=== PATIENT | female | born 1950 | race Caucasian/White ===

== ENCOUNTER 2021-09-14 12:42 | Inpatient (IN) ==
--- NOTE | 2021-09-14 13:48 | Emergency Department Note ---
Impression & Plan TIA (transient ischemic attack), Carotid artery disease ED Provider Note NAME: ROXANA CARREON AGE: 71 SEX: F : 1950 ARRIVES VIA: Walk-In INFORMANT: Patient, ED PROVIDER(S): Avni Moore DO CHIEF COMPLAINT: Left hand weakness HPI: The patient is a 71-year-old female who presented to emergency department with left upper extremity weakness. She states that the symptoms began yesterday. She states that the symptoms have been intermittent. She states that she has had multiple episodes over the last 24 hours. She has not been seen by her provider for the symptoms. She states that she does have a history of a stroke in the past and this is why she came in the emergency department today she was concerned that the symptoms could be consistent with a stroke. She denies having any nausea or vomiting. She denies having any headache. She describes an episode where her left upper extremity will start to become numb and then she will have a clenching episode with the left upper extremity. She states she cannot hold anything with that hand whenever these episodes occur. She states she currently is not experiencing that episode and feels that overall her strength is symmetric. ROS: See above HPI for pertinent positives & negatives. A total of 10 systems reviewed and were otherwise negative. PAST MEDICAL HISTORY: See Below PAST SURGICAL HISTORY: See Below FAMILY HISTORY: See Below SOCIAL HISTORY: See Below HOME MEDICATIONS: See Below ALLERGIES: See Below VITALS: See Below PHYSICAL EXAMINATION: GENERAL: Patient is awake alert in no acute distress patient is resting comfortably and showing no signs of anxiety EYES: The conjunctivae are clear. The pupils are round and reactive. EARS, NOSE, MOUTH AND THROAT: The nose is without any evidence of any deformity. NECK: The neck is nontender and supple. RESPIRATORY: Normal respiratory effort is noted there is no evidence of wheezing rhonchi or rales CARDIOVASCULAR: Regular rate and rhythm noted there no murmurs rubs or gallops normal S1 normal S2. GASTROINTESTINAL: The abdomen is soft. Abdomen is nontender. MUSCULOSKELETAL/EXTREMITIES: There is no evidence of gross deformity full range of motion is noted in the hips and shoulders. SKIN: There is no obvious evidence of any rash. There are no petechiae, pallor or cyanosis noted. NEUROLOGIC: Patient is awake alert and oriented x3. Superannuation Funds Manager strength is symmetric. There is no facial droop. There is no drift in the upper extremities. MEDICAL DECISION MAKING: The patient is a 71-year-old female who presented to the emergency department for an evaluation of intermittent episodes of left hand weakness. The patient does have a history of a stroke in the past but could not remember what this was from. She only takes a baby aspirin every day she is not on any other oral anticoagulants. She was not found to be in atrial fibrillation. I discussed the patient's laboratory and radiographic studies with her. She has no focal neurologic deficits at this time and she was not made a stroke alert. She was found to have significant disease on her right carotid artery. [facility] recommended that I discussed the case with neurology. Triage Nursing notes reviewed. Prior medical records reviewed Vital Signs: reviewed and remarkable for no significant abnormalities Differential diagnosis: Infection, dehydration, metabolic abnormality, hypo/hyperglycemia, electrolyte disturbance, anemia, hypoxia, cardiac sources, intracerebral event, toxicologic, neurologic, as well as other pathologies. ER treatment provided: See below Diagnostics interpreted by me: ECG: EKG was obtained in the emergency department. My interpretation is sinus bradycardia 54 bpm. There is no ectopy. There is no acute ST segment abnormalities noted. This was compared to a tracing from December 21, 2014 and no significant changes were noted. Cardiac Monitoring: An order was placed for continuous cardiac monitoring. The monitor shows a rate of 81 bpm with sinus rhythm. Laboratory studies: As stated above and show below. Imaging studies: See below Consultation(s): I discussed this case with Dr. Brice who recommended I consult neurology. I discussed this patient with Dr. Stephen who is on-call for neurology. He does recommend aspirin and Plavix at this time. Past Med/Surg History Medical History Basal ganglia infarction Diabetes mellitus, type II Hypertension Surgical History History of hysterectomy Hx of appendectomy Hx of cholecystectomy Social History Smoking Status: Never smoker Tobacco Type: Cigarettes Hx Alcohol Use: No Hx Substance Use: No Preferred Language: Upper Sorbian Communication Ability: Effective Cable Television Installer Required: No Beliefs That Will Affect Care: None Current Living Situation: Spouse Feels Safe at Home: Yes Safety Concerns: Feels Safe At This Time Assistive Devices: None Allergies Allergies Allergy/AdvReac Type Severity Reaction Status Date / Time cefazolin Allergy Unknown RASH Unverified 09/14/21 14:27 oxycodone Allergy Unknown RASH Unverified 09/14/21 14:27 Home Meds Home Medications Medication Instructions Recorded Confirmed amlodipine 5 mg tablet 5 mg PO DAILY 10/23/18 09/14/21 metformin 500 mg tablet 500 mg PO BIDM 10/23/18 09/14/21 metoprolol tartrate 50 mg tablet 25 mg PO BID 10/23/18 09/14/21 multivitamin (Multiple Vitamins) 1 tab PO DAILY 10/23/18 09/14/21 aspirin 81 mg capsule 81 mg PO DAILY 09/14/21 09/14/21 Results & Data (ED) Vital Signs Vital Signs - 24 hr 09/14/21 14:35 09/14/21 15:01 09/14/21 15:30 Temperature Temperature Source Pulse Rate 56 L 54 L 54 L Pulse Rate [Finger] Respiratory Rate 15 19 19 Respiratory Effort / Characteristics Respiratory Depth Blood Pressure 180/80 H 182/80 H Blood Pressure [Right Arm] Blood Pressure Mean 113 114 Blood Pressure Mean [Right Arm] Blood Pressure Position [Right Arm] Pulse Oximetry 96 96 Oxygen Delivery Method 09/14/21 15:50 09/14/21 16:00 09/14/21 17:14 Temperature 36.9 C Temperature Source Oral Pulse Rate 59 L 88 Pulse Rate [Finger] 81 Respiratory Rate 18 16 20 Respiratory Effort / Characteristics Non-Labored Spontaneous Respiratory Depth Normal Blood Pressure 188/92 H 179/101 H Blood Pressure [Right Arm] 136/87 Blood Pressure Mean 124 127 Blood Pressure Mean [Right Arm] 103 Blood Pressure Position [Right Arm] Sitting Pulse Oximetry 99 97 97 Oxygen Delivery Method Room Air 09/14/21 17:30 09/14/21 17:31 Temperature Temperature Source Pulse Rate 62 85 Pulse Rate [Finger] Respiratory Rate 16 16 Respiratory Effort / Characteristics Respiratory Depth Blood Pressure 207/91 H 204/98 H Blood Pressure [Right Arm] Blood Pressure Mean 129 133 Blood Pressure Mean [Right Arm] Blood Pressure Position [Right Arm] Pulse Oximetry 98 98 Oxygen Delivery Method Home Medications Current Medication List: was personally reviewed by me Laboratory Data Attestation: I reviewed the patient's lab results. Result diagrams: 09/14/21 13:10 09/14/21 13:10 Lab Results 09/14/21 09/14/21 09/14/21 Range/Units 13:10 13:10 13:10 WBC 9.93 (4.8-10.8) K/uL RBC 4.37 (4.2-5.4) M/uL Hgb 13.2 (12.0-16.0) g/dL Hct 40.4 (37-47) % MCV 92.4 (80-100) fL MCH 30.2 (25-34) pg MCHC 32.7 (32-36) g/dL RDW Std Deviation 44.8 (36.4-46.3) fL RDW Coeff of Johnny 13.1 (11.5-14.5) % Plt Count 304 (130-400) K/uL MPV 11.3 H (7.4-10.4) fL Immature Gran % (Auto) 0.2 % Neut % (Auto) 52.6 % Lymph % (Auto) 37.6 % [place] % (Auto) 6.3 % Eos % (Auto) 2.9 % Baso % (Auto) 0.4 % Neut # (Auto) 5.22 (1.4-6.5) K/uL Lymph # (Auto) 3.73 H (1.2-3.4) K/uL [place] # (Auto) 0.63 H (0.11-0.59) K/uL Eos # (Auto) 0.29 (0-0.5) K/uL Baso # (Auto) 0.04 (0-0.2) K/uL Immature Gran # (Auto) 0.02 (0.00-0.02) K/uL PT 10.2 (9.0-12.0) Seconds INR 1.0 (0.9-1.1) APTT 25.1 (21.0-31.0) Seconds PTT Ratio 0.9 Sodium 139 (136-145) mmol/L Potassium 4.2 (3.5-5.1) mmol/L Chloride 106 (98-107) mmol/L Carbon Dioxide 25 (21-32) mmol/L Anion Gap 8 (3-11) BUN 26 H (6-23) mg/dl Creatinine 1.24 H (0.6-1.2) mg/dl Est Cr Clr Drug Dosing 39.3 ml/min Est GFR ( Amer) 51.0 ml/min Est GFR (Non-Af Amer) 44.0 ml/min BUN/Creatinine Ratio 21.0 H (10-20) Glucose 161 H (70-99(Fasting)) mg/dl Calcium 9.5 (8.5-10.1) mg/dl Magnesium 1.8 (1.7-2.4) mg/dl Total Bilirubin 0.3 (0.2-1.0) mg/dl AST 23 (13-39) U/L ALT 28 (7-52) U/L Alkaline Phosphatase 74 (34-104) U/L Troponin I High Sens 5.2 (0-14) pg/ml Total Protein 7.5 (6.0-8.3) gm/dl Albumin 3.9 (3.4-5.0) gm/dl Globulin 3.6 (2.5-4.0) gm/dl Albumin/Globulin Ratio 1.1 (0.9-2) Urine Color Urine Appearance (Clear) Urine pH (4.5-7.5) Ur Specific [place] (1.000-1.030) Urine Protein (Negative) Urine Glucose (UA) (Negative) Urine Ketones (Negative) Urine Blood (Negative) Urine Nitrite (Negative) Urine Bilirubin (Negative) Urine Urobilinogen (Negative) Ur Leukocyte Esterase (Negative) Urine WBC (Auto) (0-5) /hpf Urine RBC (Auto) (0-4) /hpf U Hyaline Cast (Auto) (0-5) /lpf U Epithel Cells (Auto) (0-5) /lpf Urine Bacteria (Auto) (Negative) SARS-CoV-2, RNA, NAAT (NEGATIVE) 09/14/21 09/14/21 Range/Units 14:55 17:25 WBC (4.8-10.8) K/uL RBC (4.2-5.4) M/uL Hgb (12.0-16.0) g/dL Hct (37-47) % MCV (80-100) fL MCH (25-34) pg MCHC (32-36) g/dL RDW Std Deviation (36.4-46.3) fL RDW Coeff of Johnny (11.5-14.5) % Plt Count (130-400) K/uL MPV (7.4-10.4) fL Immature Gran % (Auto) % Neut % (Auto) % Lymph % (Auto) % [place] % (Auto) % Eos % (Auto) % Baso % (Auto) % Neut # (Auto) (1.4-6.5) K/uL Lymph # (Auto) (1.2-3.4) K/uL [place] # (Auto) (0.11-0.59) K/uL Eos # (Auto) (0-0.5) K/uL Baso # (Auto) (0-0.2) K/uL Immature Gran # (Auto) (0.00-0.02) K/uL PT (9.0-12.0) Seconds INR (0.9-1.1) APTT (21.0-31.0) Seconds PTT Ratio Sodium (136-145) mmol/L Potassium (3.5-5.1) mmol/L Chloride (98-107) mmol/L Carbon Dioxide (21-32) mmol/L Anion Gap (3-11) BUN (6-23) mg/dl Creatinine (0.6-1.2) mg/dl Est Cr Clr Drug Dosing ml/min Est GFR ( Amer) ml/min Est GFR (Non-Af Amer) ml/min BUN/Creatinine Ratio (10-20) Glucose (70-99(Fasting)) mg/dl Calcium (8.5-10.1) mg/dl Magnesium (1.7-2.4) mg/dl Total Bilirubin (0.2-1.0) mg/dl AST (13-39) U/L ALT (7-52) U/L Alkaline Phosphatase (34-104) U/L Troponin I High Sens (0-14) pg/ml Total Protein (6.0-8.3) gm/dl Albumin (3.4-5.0) gm/dl Globulin (2.5-4.0) gm/dl Albumin/Globulin Ratio (0.9-2) Urine Color Yellow Urine Appearance Clear (Clear) Urine pH 5.0 (4.5-7.5) Ur Specific [place] 1.014 (1.000-1.030) Urine Protein Negative (Negative) Urine Glucose (UA) Negative (Negative) Urine Ketones Negative (Negative) Urine Blood Negative (Negative) Urine Nitrite Negative (Negative) Urine Bilirubin Negative (Negative) Urine Urobilinogen Negative (Negative) Ur Leukocyte Esterase Trace H (Negative) Urine WBC (Auto) 1-5 (0-5) /hpf Urine RBC (Auto) 0-4 (0-4) /hpf U Hyaline Cast (Auto) 1-5 (0-5) /lpf U Epithel Cells (Auto) 20-30 H (0-5) /lpf Urine Bacteria (Auto) Negative (Negative) SARS-CoV-2, RNA, NAAT NEGATIVE (NEGATIVE) Administered Medications Aspirin (Aspirin 81 Mg Ectab) 81 mg PO DAILY [facility] Stop: 10/15/21 08:59 Last Admin: 09/15/21 08:44 Dose: 81 mg Documented by: [id number] Atorvastatin Calcium (Atorvastatin 40 Mg Tab) 40 mg PO QPM [facility] Stop: 10/14/21 20:59 Last Admin: 09/14/21 21:35 Dose: 40 mg Documented by: [id number] Clopidogrel Bisulfate (Clopidogrel Bisulfate 75 Mg Tab) 75 mg PO [facility] Stop: 10/15/21 08:59 Last Admin: 09/15/21 08:44 Dose: 75 mg Documented by: [id number] Fenofibrate (Fenofibrate Nanocrystallized 145 Mg Tablet) 145 mg PO [facility] Stop: 10/15/21 08:59 Last Admin: 09/15/21 08:43 Dose: 145 mg Documented by: [id number] Insulin Aspart (Insulin Aspart Per Unit) 0 units SC ACHS [facility] Stop: 10/14/21 20:59 Last Admin: 09/15/21 12:31 Dose: 7 units Documented by: [id number] Cosigned by: [id number] Admin: 09/15/21 08:45 Dose: 6 units Documented by: [id number] Cosigned by: [id number] Admin: 09/14/21 21:45 Dose: 3 units Documented by: [id number] Cosigned by: [id number] Metoprolol Tartrate (Metoprolol Tartrate 25 Mg Tab) 25 mg PO BID [facility] Stop: 10/14/21 20:59 Last Admin: 09/15/21 08:44 Dose: 25 mg Documented by: [id number] Admin: 09/14/21 21:36 Dose: 25 mg Documented by: [id number] Multivitamins (Multivitamin Tab) 1 tab PO DAILY ELISA Stop: 10/15/21 08:59 Last Admin: 09/15/21 08:43 Dose: 1 tab Documented by: [id number] Discontinued Medications Aspirin (Aspirin Chew 324 Mg) 324 mg PO NOW STA Stop: 09/14/21 17:22 Last Admin: 09/14/21 17:47 Dose: 324 mg Documented by: [id number] Clopidogrel Bisulfate (Clopidogrel Bisulfate 75 Mg Tab) 75 mg PO NOW ONE Stop: 09/14/21 17:22 Last Admin: 09/14/21 17:47 Dose: 75 mg Documented by: [id number] Ioversol (Optiray 320 125ml) 120 ml IV ONCE ONE Stop: 09/14/21 16:15 Last Admin: 09/14/21 16:14 Dose: 120 ml Documented by: [id number] Imaging Data Radiologist's Impression: Chest X-Ray 09/14/21 13:43 XR chest 1V portable HISTORY: Stroke Like Symptoms COMPARISON: Chest 12/22/2014. FINDINGS: The lungs are clear. Cardiac silhouette is normal in size. No pleural effusions. No pneumothorax. IMPRESSION: No acute process. ACT 112: Negative or not required by law. Electronically signed by: Angelo Coppola M.D. 09/14/2021 2:[address] 09/14/21 13:[address] DOSE: 1037.46 mGy.cm HISTORY: Stroke Like Symptoms TECHNIQUE: Multiaxial CT images of the head were performed without the use of intravenous contrast. Automated exposure control was utilized for this study. A dose lowering technique was utilized adhering to the principles of ALARA. Comparison: Head CT 10/17/2014. Findings: Fluid levels with near complete opacification of the sphenoid sinuses consistent with acute sinusitis. The mastoid air cells are clear. Old infarcts within the left thalamus and left basal ganglia are again noted. The calvarium and skull base are intact. The ventricles and sulci are within normal limits. There is no mass, hematoma, midline shift, or acute infarct. Impression: 1. No acute intracranial abnormality. 2. Acute sphenoid sinusitis. ACT 112: Negative or not required by law. Electronically signed by: Angelo Coppola M.D. 09/14/2021 4:40 PM Head CTA 09/14/21 13:43 HEAD & NECK CTA HISTORY: Stroke Like Symptoms TECHNIQUE: Multiaxial CT images of the head were performed following the intravenous administration of contrast to evaluate the major cerebral vessels. Multiaxial CT images of the neck were also performed following the intravenous administration of contrast to evaluate the major cervical vessels. Maximum intensity projection images were also obtained. A dose lowering technique was utilized adhering to the principles of ALARA. COMPARISON: Head CT 09/14/2021. FINDINGS: There is no mass, hematoma, midline shift, or acute infarct. Old infarct within the left thalamus and left basal ganglia again noted. Visualized intracranial internal carotid arteries, distal vertebral arteries, and basilar artery are widely patent. There is no significant stenosis, occlusion, or aneurysm seen within the bilateral ACAs, MCAs, or machine fancy stitcher. The major dural venous sinuses are patent. The aortic arch and proximal great vessels are widely patent. No significant stenosis, occlusion, or dissection within the left carotid or vertebral bodies. Focal calcified and noncalcified plaque within the right carotid bifurcation resulting in approximately 30% stenosis at the distal right common carotid artery. In addition, there is a focal area of high-grade stenosis of approximately 70% at the takeoff of the right internal carotid artery due to the atherosclerotic plaque. There is a small focal linear filling defect within the proximal right internal carotid artery best seen image 165. This favors a small amount of atherosclerotic plaque/thrombus. A focal intimal flap/dissection is considered less likely but not entirely excluded. Remaining right internal carotid artery is widely patent. Multinodular thyroid gland with the dominant nodule on the left measuring 1.9 cm. IMPRESSION: 1. No significant stenosis, occlusion, or aneurysm within the [place]. 2. A focal area of high-grade stenosis at the takeoff of the right internal carotid artery due to the atherosclerotic plaque. This demonstrates approximately 70% stenosis. 3. In addition, there is a small focal linear filling defect within the proximal right internal carotid artery as described above which favors a small amount of atherosclerotic plaque/thrombus. A focal intimal flap/dissection is considered less likely but not entirely excluded. Remaining right internal carotid artery is widely patent. 4. Multinodular thyroid gland. Dominant nodule on the left measures 1.9 cm. ACT 112: Negative or not required by law. Electronically signed by: Angelo Coppola M.D. 09/14/2021 4:51 PM Neck CTA 09/14/21 13:43 HEAD & NECK CTA HISTORY: Stroke Like Symptoms TECHNIQUE: Multiaxial CT images of the head were performed following the intravenous administration of contrast to evaluate the major cerebral vessels. Multiaxial CT images of the neck were also performed following the intravenous administration of contrast to evaluate the major cervical vessels. Maximum in tensity projection images were also obtained. A dose lowering technique was utilized adhering to the principles of ALARA. COMPARISON: Head CT 09/14/2021. FINDINGS: There is no mass, hematoma, midline shift, or acute infarct. Old infarct within the left thalamus and left basal ganglia again noted. Visualized intracranial internal carotid arteries, distal vertebral arteries, and basilar artery are widely patent. There is no significant stenosis, occlusion, or aneurysm seen within the bilateral ACAs, MCAs, or machine fancy stitcher. The major dural venous sinuses are patent. The aortic arch and proximal great vessels are widely patent. No significant stenosis, occlusion, or dissection within the left carotid or vertebral bodies. Focal calcified and noncalcified plaque within the right carotid bifurcation resulting in approximately 30% stenosis at the distal right common carotid artery. In addition, there is a focal area of high-grade stenosis of approximately 70% at the takeoff of the right internal carotid artery due to the atherosclerotic plaque. There is a small focal linear filling defect within the proximal right internal carotid artery best seen image 165. This favors a small amount of atherosclerotic plaque/thrombus. A focal intimal flap/dissection is considered less likely but not entirely excluded. Remaining right internal carotid artery is widely patent. Multinodular thyroid gland with the dominant nodule on the left measuring 1.9 cm. IMPRESSION: 1. No significant stenosis, occlusion, or aneurysm within the [place]. 2. A focal area of high-grade stenosis at the takeoff of the right internal carotid artery due to the atherosclerotic plaque. This demonstrates approximately 70% stenosis. 3. In addition, there is a small focal linear filling defect within the proximal right internal carotid artery as described above which favors a small amount of atherosclerotic plaque/thrombus. A focal intimal flap/dissection is considered less likely but not entirely excluded. Remaining right internal carotid artery is widely patent. 4. Multinodular thyroid gland. Dominant nodule on the left measures 1.9 cm. ACT 112: Negative or not required by law. Electronically signed by: Angelo Coppola M.D. 09/14/2021 4:51 PM Discharge Plan Visit Data Chief Complaint: Arm Pain Stated Complaint: HAND/ARM PAIN ED Provider: Avni Moore Discharge Problem: TIA (transient ischemic attack), Carotid artery disease Patient Disposition: Admitted As Inpatient Discharge Instructions Interventions: ED Discharge Assessment Last Done: 09/14/21 19:20 Discharge Problem: Carotid artery disease Qualifiers: Carotid artery disease type: unspecified Laterality: right Qualified Code(s): I77.9 - Disorder of arteries and arterioles, unspecified
[2021-09-14 14:01] LABS: Basophils # (auto) 0.04 K/uL (0-0.2); Basophils % (auto) 0.4 %; Eosinophils # (auto) 0.29 K/uL (0-0.5); Eosinophils % (auto) 2.9 %; Hematocrit (blood only) 40.4 % (37-47); Hemoglobin 13.2 g/dL (12.0-16.0); Immature Granulocytes # (auto) 0.02 K/uL (0.00-0.02); Immature Granulocytes % (auto) 0.2 %; Lymphocytes # (auto) 3.73 K/uL (1.2-3.4); Lymphocytes % (auto) 37.6 %; Mean Corpuscular Hemoglobin 30.2 pg (25-34); Mean Corpuscular Hgb Conc 32.7 g/dL (32-36); Mean Corpuscular Volume 92.4 fL (80-100); Mean Platelet Volume 11.3 fL (7.4-10.4); Monocytes # (auto) 0.63 K/uL (0.11-0.59); Monocytes % (auto) 6.3 %; Neutrophils # (auto) 5.22 K/uL (1.4-6.5); Neutrophils % (auto) 52.6 %; Platelet Count 304 K/uL (130-400); RDW Coefficient of Variation 13.1 % (11.5-14.5); RDW Standard Deviation 44.8 fL (36.4-46.3); Red Blood Count 4.37 M/uL (4.2-5.4); White Blood Count 9.93 K/uL (4.8-10.8)
[2021-09-14 14:03] LABS: Partial Thromboplastin Ratio 0.9; Partial Thromboplastin Time 25.1 Seconds (21.0-31.0); Prothrombin Time 10.2 Seconds (9.0-12.0)
--- NOTE | 2021-09-14 14:08 | XRay Report ---
XR chest 1V portable HISTORY: Stroke Like Symptoms COMPARISON: Chest 12/22/2014. FINDINGS: The lungs are clear. Cardiac silhouette is normal in size. No pleural effusions. No pneumot horax. IMPRESSION: No acute process. ACT 112: Negative or not required by law. Electronically signed by: Angelo Coppola M.D. 09/14/2021 2:06 PM
[2021-09-14 14:16] LABS: Albumin Globulin Ratio 1.1 (0.9-2); Albumin Level 3.9 gm/dl (3.4-5.0); Bilirubin,Total 0.3 mg/dl (0.2-1.0); Calcium 9.5 mg/dl (8.5-10.1); Creatinine Clr Calc Pharmacy 39.3 ml/min; Globulin 3.6 gm/dl (2.5-4.0); Magnesium 1.8 mg/dl (1.7-2.4); Potassium 4.2 mmol/L (3.5-5.1); Total Protein 7.5 gm/dl (6.0-8.3)
[2021-09-14 14:20] LABS: Troponin I High Sensitivity 5.2 pg/ml (0-14)
[2021-09-14 15:14] LABS: Appearance Urine Clear (Clear); Bacteria Urine Automated Negative (Negative); Bilirubin Urine Negative (Negative); Blood Urine Negative (Negative); Color Urine Yellow; Epithelial Cell Urine Auto 20-30 /lpf (0-5); Glucose Urine UA Negative (Negative); Ketones Urine Negative (Negative); Leukocyte Esterase Urine Trace (Negative); Nitrite Urine Negative (Negative); Protein Urine Negative (Negative); RBC Urine Automated 0-4 /hpf (0-4); Specific Gravity Urine 1.014 (1.000-1.030); Urobilinogen Urine Negative (Negative)
[2021-09-14] MEDS ORDERED: OPTIRAY 320 125ml IV ONE (16:14)
--- NOTE | 2021-09-14 16:42 | CT Scan Report ---
HEAD CT NONCONTRAST CT DOSE: 1037.46 mGy.cm HISTORY: Stroke Like Symptoms TECHNIQUE: Multiaxial CT images of the head were performed without the use of intravenous contrast. A utomated exposure control was utilized for this study. A dose lowering technique was utilized adheri ng to the principles of ALARA. Comparison: Head CT 10/17/2014. Findings: Fluid levels with near complete opacification of the sphenoid sinuses consistent with acute sinusitis. The mastoid air cells are clear. Old infarcts within the left thalamus and left basal davie glia are again noted. The calvarium and skull base are intact. The ventricles and sulci are within no rmal limits. There is no mass, hematoma, midline shift, or acute infarct. Impression: 1. No acute intracranial abnormality. 2. Acute sphenoid sinusitis. ACT 112: Negative or not required by law. Electronically signed by: Angelo Coppola M.D. 09/14/2021 4:40 PM
--- NOTE | 2021-09-14 16:54 | CT Scan Report ---
HEAD & NECK CTA HISTORY: Stroke Like Symptoms TECHNIQUE: Multiaxial CT images of the head were performed following the intravenous administration o f contrast to evaluate the major cerebral vessels. Multiaxial CT images of the neck were also perform ed following the intravenous administration of contrast to evaluate the major cervical vessels. Maxim um intensity projection images were also obtained. A dose lowering technique was utilized adhering to the principles of ALARA. COMPARISON: Head CT 09/14/2021. FINDINGS: There is no mass, hematoma, midline shift, or acute infarct. Old infarct within the left thalamus and left basal ganglia again noted. Visualized intracranial internal carotid arteries, distal vertebral arteries, and basilar artery are widely patent. There is no significant stenosis, occlusion, or aneur ysm seen within the bilateral ACAs, MCAs, or aircraft systems technician. The major dural venous sinuses are patent. The aortic arch and proximal great vessels are widely patent. No significant stenosis, occlusion, o r dissection within the left carotid or vertebral bodies. Focal calcified and noncalcified plaque wit hin the right carotid bifurcation resulting in approximately 30% stenosis at the distal right common carotid artery. In addition, there is a focal area of high-grade stenosis of approximately 70% at the takeoff of the right internal carotid artery due to the atherosclerotic plaque. There is a small foc al linear filling defect within the proximal right internal carotid artery best seen image 165. This favors a small amount of atherosclerotic plaque/thrombus. A focal intimal flap/dissection is consider ed less likely but not entirely excluded. Remaining right internal carotid artery is widely patent. M ultinodular thyroid gland with the dominant nodule on the left measuring 1.9 cm. IMPRESSION: 1. No significant stenosis, occlusion, or aneurysm within the [place]. 2. A focal area of high-grade stenosis at the takeoff of the right internal carotid artery due to the atherosclerotic plaque. This demonstrates approximately 70% stenosis. 3. In addition, there is a small focal linear filling defect within the proximal right internal carot id artery as described above which favors a small amount of atherosclerotic plaque/thrombus. A focal intimal flap/dissection is considered less likely but not entirely excluded. Remaining right internal carotid artery is widely patent. 4. Multinodular thyroid gland. Dominant nodule on the left measures 1.9 cm. ACT 112: Negative or not required by law. Electronically signed by: Angelo Coppola M.D. 09/14/2021 4:51 PM
[2021-09-14] MEDS ORDERED: CLOPIDOGREL BISULFATE 75 MG TAB PO ONE (17:21)
[2021-09-14] MEDS ORDERED: ASPIRIN CHEW 324 MG PO STA (17:21)
--- NOTE | 2021-09-14 17:37 | History & Physical Report ---
Date of Service September 14, 2021 Assessment & Plan (1) TIA (transient ischemic attack): Plan: -continue aspirin, add plavix, add atorvastatin 40mg QHS -MRI brain wo contrast ordered -PT/OT/DEMOLITION ENGINEER -Monitor on telemetry -TTE with bubble study -Check lipid panel, A1c in morning -case was discussed by ER with Neurology, formal Neurology consult in AM (2) Carotid artery disease: Plan: -management as above (3) Hypertension: Plan: -continue metoprolol, would hold amlodipine pending MRI brain (4) Diabetes mellitus, type II: Plan: hold metformin will order corrective scale insulin (5) Dyslipidemia: Plan: not on medications currently start atorvastatin 40mg QHS check lipid panel in AM Plan: DVT ppx -SCDs Will place into observation for now. History of Present Illness Chief Complaint: left arm weakness Primary Care Provider: Jeramy Reyes MD Ms Joann Cerna is a 71 year old female with history of hypertension, type 2 non insulin dependent diabetes and hyperlipidemia not on medications presents to the ER with intermittent left hand weakness and dropping things. Her symptoms started yesterday and have since resolved. Patient reports history of 2 prior strokes the last one was about 6 years ago but with no residual deficits. She has otherwise been well. No recent illness. No fever/chills/nausea/vomiting or other complaints Allergies Allergy/AdvReac Type Severity Reaction Status Date / Time cefazolin Allergy Unknown RASH Unverified 09/14/21 14:27 oxycodone Allergy Unknown RASH Unverified 09/14/21 14:27 Home Medications Medication Instructions Recorded Confirmed Type amlodipine 5 mg tablet 5 mg PO DAILY 10/23/18 09/14/21 History metformin 500 mg tablet 500 mg PO BIDM 10/23/18 09/14/21 History metoprolol tartrate 50 mg tablet 25 mg PO BID 10/23/18 09/14/21 History multivitamin (Multiple Vitamins) 1 tab PO DAILY 10/23/18 09/14/21 History aspirin 81 mg capsule 81 mg PO DAILY 09/14/21 09/14/21 History Past Med/Surg History Medical History Basal ganglia infarction Diabetes mellitus, type II Hypertension Surgical History History of hysterectomy Hx of appendectomy Hx of cholecystectomy Social History Smoking Status: Former smoker Tobacco Type: Cigarettes Preferred Language: Ugandan Feels Safe at Home: Yes Review of Systems Review of Systems: As above in HPI, remaining ROS otherwise negative Physical Exam Physical Exam: Appears stated age, no acute distress, pleasant ENMT: EOMI, normocephalic, atraumatic Respiratory: breathing comfortably on room air, no wheezing/rhonchi/rales Cardiovascular: regular rate and rhythm, no murmurs/rubs/gallops Gastrointestinal (Abdomen): soft, non tender, non distended Musculoskeletal: no edema, no cyanosis or clubbing Skin: no rash, no redness, no ulcers noted on exposed skin (sacrum was NOT examined since patient was wearing street clothes) Neurologic: awake, alert, CN grossly intact, 5/5 strength upper and lower extremity with intact gross sensation Psychiatric: normal affect, speech linear, appropriate insight and judgement Results & Data Results & Data ([facility]) Vital Signs (Past 12 Hours) Vital Signs Temp Pulse Pulse Resp BP BP Pulse Ox 09/14/21 15:50 36.9 C 81 18 136/87 99 09/14/21 14:35 56 L 15 09/14/21 14:00 58 L 17 168/77 H 93 09/14/21 13:30 59 L 20 171/73 H 95 09/14/21 13:15 56 L 24 93 09/14/21 12:46 36.7 C 58 L 20 169/68 H 93 Laboratory Results Short CBC 09/14/21 Range/Units 13:10 WBC 9.93 (4.8-10.8) K/uL Hgb 13.2 (12.0-16.0) g/dL Hct 40.4 (37-47) % Plt Count 304 (130-400) K/uL BMP 09/14/21 13:10 Sodium 139 Potassium 4.2 Chloride 106 Carbon Dioxide 25 BUN 26 H Creatinine 1.24 H Glucose 161 H Calcium 9.5 Liver Function 09/14/21 Range/Units 13:10 Total Bilirubin 0.3 (0.2-1.0) mg/dl AST 23 (13-39) U/L ALT 28 (7-52) U/L Alkaline Phosphatase 74 (34-104) U/L Albumin 3.9 (3.4-5.0) gm/dl Urine 09/14/21 Range/Units 14:55 Urine Color Yellow Urine Appearance Clear (Clear) Urine pH 5.0 (4.5-7.5) Ur Specific [place] 1.014 (1.000-1.030) Urine Protein Negative (Negative) Urine Glucose (UA) Negative (Negative) Code Status & VTE Plan Code Status Full, discussed with patient (1) Carotid artery disease Carotid artery disease type: unspecified Laterality: right Qualified Code(s): I77.9 - Disorder of arteries and arterioles, unspecified
[2021-09-14] MEDS ORDERED: GLUCOSE 10 TABS/TUBE PO PRN (19:43)
[2021-09-14] MEDS ORDERED: CARBOHYDRATES FOR HYPOGLYCEMIA PO PRN (19:43)
[2021-09-14] MEDS ORDERED: ALUMINUM/MAGNESIUM SUSP 30 ML UDC PO PRN (19:43)
[2021-09-14] MEDS ORDERED: DEXTROSE 50% 50 ML SYRINGE IV PRN (19:43)
[2021-09-14] MEDS ORDERED: GLUCAGON FOR INJ 1 MG VIAL SQ PRN (19:43)
[2021-09-14] MEDS ORDERED: GLUCOSE 40% GEL 15 GM TUBE PO PRN (19:43)
[2021-09-14] MEDS ORDERED: POLYETHYLENE (MIRALAX) 17 GM PACK PO PRN (19:43)
[2021-09-14] MEDS ORDERED: ONDANSETRON INJ 2 MG/ML 2 ML VIAL IV PRN (19:43)
[2021-09-14] MEDS ORDERED: ACETAMINOPHEN 325 MG TAB PO PRN (19:43)
[2021-09-14] MEDS: ATORVASTATIN 40 MG TAB PO SCH (21:35)
[2021-09-14] MEDS: METOPROLOL TARTRATE 25 MG TAB PO SCH (21:36)
[2021-09-14] MEDS: INSULIN ASPART PER UNIT SC SCH (21:45)
[2021-09-15] MEDS: FENOFIBRATE NANOCRYSTALLIZED 145 MG TABLET PO SCH (08:43)
[2021-09-15] MEDS: MULTIVITAMIN TAB PO SCH (08:43)
[2021-09-15] MEDS: METOPROLOL TARTRATE 25 MG TAB PO SCH ×2 (08:44→21:38)
[2021-09-15] MEDS: ASPIRIN 81 MG ECTAB PO SCH (08:44)
[2021-09-15] MEDS: CLOPIDOGREL BISULFATE 75 MG TAB PO SCH (08:44)
[2021-09-15] MEDS: INSULIN ASPART PER UNIT SC SCH ×4 (08:45→21:30)
--- NOTE | 2021-09-15 11:40 | Electrocardiogram Report ---
Test Reason : Blood Pressure : / mmHG Vent. Rate : 054 BPM Atrial Rate : 054 BPM P-R Int : 170 ms QRS Dur : 078 ms QT Int : 428 ms P-R-T Axes : 049 -05 080 degrees QTc Int : 405 ms Sinus bradycardia Otherwise normal ECG When compared with ECG of 21-DEC-2014 00:33, No significant change was found Confirmed by Avni Bliss ([id number]) on 09/15/2021 11:40:35 AM Referred By: REFERRED SELF Confirmed By:Avni Bliss
--- NOTE | 2021-09-15 12:27 | Magnetic Resonance Report ---
Brain MRI WITHOUT CONTRAST HISTORY: Left hand numbness. Possible stroke. TECHNIQUE: Multiplanar multisequence MRI of the brain was performed without the use of contrast. COMPARISON STUDY: Head CT 09/14/2021. Brain MRI 10/18/2014. FINDINGS: There are 2 punctate foci of restricted diffusion within the right high convexity precentra l gyrus best seen on image 16 and within the periphery the right frontal lobe on image 15. These are consistent with acute infarcts. The midline structures are intact. The ventricles and sulci demonstra te mild age-related involutional changes. There are few scattered foci of T2 hyperintensity seen with in the white matter of the supratentorial brain. These are nonspecific but favor mild microvascular i schemic change given the patient's age. There is no mass, hematoma, midline shift. The major vascular flow-voids at the skull base are maintained. Fluid levels again noted within the sphenoid sinuses. P rior bilateral lens replacement. The mastoid air cells are clear. Old small infarcts within the left basal ganglia and left thalamus again noted. IMPRESSION: 1. There are 2 punctate acute infarcts seen within the right frontal lobe as described above. 2. Old left basal ganglia/thalamic infarcts are again noted. 3. Acute sphenoid sinusitis. ACT 112: Negative or not required by law. Electronically signed by: Angelo Coppola M.D. 09/15/2021 12:26 PM
--- NOTE | 2021-09-15 13:25 | Consultation Report ---
NEUROLOGY CONSULTATION NOTE DATE OF CONSULTATION: 09/15/2021. CHIEF COMPLAINT: Left upper extremity weakness. HISTORY OF PRESENT ILLNESS: A 71-year-old female with a history of non-insulin dependent type 2 diabetes, hypertension, and hyperlipidemia, presented to the Emergency Department yesterday for intermittent left hand weakness noted one day prior. Symptoms have since resolved. No focal neuro deficits were noted in the Emergency Department yesterday. The patient underwent CTA head and neck imaging. The patient was started on aspirin and Plavix and admitted for further evaluation of possible stroke versus transient ischemic attack. Neurology was consulted upon admission. HOME MEDICATIONS: Norvasc, metformin, metoprolol, multivitamin, aspirin 81 mg daily. ALLERGIES: CEFAZOLIN, OXYCODONE. PAST MEDICAL HISTORY: Type 2 diabetes, hypertension, hyperlipidemia, history of prior stroke with no residual deficits. PAST SURGICAL HISTORY: Hysterectomy, appendectomy, cholecystectomy. SOCIAL HISTORY: She is a former smoker. No heavy alcohol or illicit drug use. REVIEW OF SYSTEMS: Includes left upper extremity weakness, all other review of systems was negative. PHYSICAL EXAMINATION: VITAL SIGNS: Blood pressure 148/76, pulse is 59, respiratory rate is 20, temperature 36.5 degrees Celsius, oxygen saturations 98% on room air. GENERAL: The patient is awake, alert, oriented to person, place, and time. She appears in no acute distress. HEENT: Head is atraumatic, normocephalic. Normal eyelids. Normal conjunctivae. Eyes are midline. LUNGS: Normal respiratory effort. CARDIAC: Pulses are intact. ABDOMEN: Nondistended. SKIN: No skin rash. PSYCHIATRIC:. Normal mood. Memory is normal. Attention is normal. Speech is clear. No aphasia. Tongue is midline. Sensation is intact to light touch. Shoulder shrug is normal. Hearing is grossly intact. No focal weakness. No ataxia with [id number] testing. Negative Tyrone sign. No ankle clonus. DIAGNOSTIC TESTING AND LABORATORY VALUES: WBC 9.93, hemoglobin 13.2, platelet count 304. Chemistry: 139, potassium 4.2, chloride 106, carbon dioxide 25, BUN 26, creatinine 1.24, glucose 161. Hemoglobin A1c is pending. Triglycerides are 236. Cholesterol was 238, LDL is 151. IMAGING: Head CT noncontrast showed no acute intracranial abnormality. No acute hemorrhage or evidence of acute ischemic stroke. Head and neck CTA, high- grade stenosis at the takeoff of the right internal carotid artery due to atherosclerotic plaque. This demonstrates approximately 70% stenosis. In addition, there is a small focal linear filling defect within the proximal right internal carotid artery, which favors a small amount of atherosclerotic plaque versus thrombus. A focal intimal flap/dissection is considered less likely. No large vessel occlusion or aneurysm. Transthoracic echocardiogram is pending. ASSESSMENT AND PLAN: A 71-year-old female with several stroke risk factors including prior left basal ganglia stroke on aspirin 81 mg daily, hypertension, type 2 diabetes, and hyperlipidemia, admitted with acute left hand weakness due to acute right MCA ischemic stroke in the setting of symptomatic right carotid stenosis. Recommend dual antiplatelet therapy, aspirin 81 mg daily and Plavix 75 mg daily as well as starting a high-intensity statin, Lipitor 40 mg daily. LDL cholesterol was elevated at 151. Would recommend Vascular Surgery consultation regarding symptomatic right ICA stenosis. Discussed and reviewed MRI brain imaging with patient this afternoon. Recommend a transthoracic echocardiogram. Continue telemetry while inpatient. Will require Neurology followup in 8 weeks. Job ID: [id number] ERNIE
--- NOTE | 2021-09-15 14:13 | Hospitalist Progress Note ---
Date of Service September 15, 2021 Assessment & Plan (1) Carotid artery disease: (2) Hypertension: Plan: -continue metoprolol, would hold amlodipine for now, resume if BP remains persistently elevated (3) Diabetes mellitus, type II: Plan: hold metformin continue corrective scale insulin -HA1c pending (4) Dyslipidemia: Plan: not on medications currently started atorvastatin 40mg QHS and fenofibrate here (5) Acute CVA (cerebrovascular accident): Plan: -noted on MRI brain -continue aspirin, plavix (started here), LDL and TG above goal. Started atorvastatin 40mg daily and fenofibrate added today -Appreciate Neurology in put -Vascular surgery consulted to evaluate right ICA disease Plan: DVT ppx -SCDs With her MRI brain confirming acute CVA, will admit to inpatient for further evaluation by vascular surgery Admission and Anticipated Discharge Date Admission Date: September 14, 2021 Subjective Feels well Results of MRI brain reviewed with patient Physical Exam Physical Exam: Sitting in chair, pleasant and comfortable Respiratory: Breathing comfortably on room air, no wheezing/rhonchi/rales Cardiovascular: regular rate and rhythm, no murmurs/rubs/gallops Gastrointestinal (Abdomen): soft, non tender, non distended Musculoskeletal: no edema Neurologic: awake, alert, spontaneously moving extremities Results & Data Results & Data ([facility]) Vital Signs (Past 12 Hours) Vital Signs Temp Pulse Pulse Resp BP Pulse Ox 09/15/21 13:34 61 09/15/21 07:27 36.5 C 59 L 20 148/76 H 90 09/15/21 03:18 36.7 C 60 18 125/68 92 Laboratory Results [facility] 09/14/21 13:10 Sodium 139 Potassium 4.2 Chloride 106 Carbon Dioxide 25 BUN 26 H Creatinine 1.24 H Glucose 161 H Calcium 9.5 Liver Function 09/14/21 Range/Units 13:10 Total Bilirubin 0.3 (0.2-1.0) mg/dl AST 23 (13-39) U/L ALT 28 (7-52) U/L Alkaline Phosphatase 74 (34-104) U/L Albumin 3.9 (3.4-5.0) gm/dl Urine 09/14/21 Range/Units 14:55 Urine Color Yellow Urine Appearance Clear (Clear) Urine pH 5.0 (4.5-7.5) Ur Specific [place] 1.014 (1.000-1.030) Urine Protein Negative (Negative) Urine Glucose (UA) Negative (Negative) Medications Administered Current Inpatient Medications Acetaminophen (Acetaminophen 325 Mg Tab) 650 mg PO Q4H PRN PRN Reason: Pain or Fever Stop: 10/14/21 19:42 Al Hydrox/Mg Hydrox/Simethicone (Aluminum/Magnesium Susp 30 Ml Udc) 15 ml PO Q4H PRN PRN Reason: Dyspepsia Stop: 10/14/21 19:42 Aspirin (Aspirin 81 Mg Ectab) 81 mg PO DAILY [facility] Stop: 10/15/21 08:59 Last Admin: 09/15/21 08:44 Dose: 81 mg Documented by: Atorvastatin Calcium (Atorvastatin 40 Mg Tab) 40 mg PO QPM [facility] Stop: 10/14/21 20:59 Last Admin: 09/14/21 21:35 Dose: 40 mg Documented by: Clopidogrel Bisulfate (Clopidogrel Bisulfate 75 Mg Tab) 75 mg PO QAM [facility] Stop: 10/15/21 08:59 Last Admin: 09/15/21 08:44 Dose: 75 mg Documented by: Dextrose (Dextrose 50% 50 Ml Syringe) 25 - 50 ml IV UD PRN; Protocol PRN Reason: Hypoglycemia Protocol Stop: 10/14/21 19:42 Fenofibrate (Fenofibrate Nanocrystallized 145 Mg Tablet) 145 mg PO QAM [facility] Stop: 10/15/21 08:59 Last Admin: 09/15/21 08:43 Dose: 145 mg Documented by: Glucagon (Glucagon For Inj 1 Mg Vial) 1 mg SQ UD PRN; Protocol PRN Reason: Hypoglycemia Protocol Stop: 10/14/21 19:42 Glucose (Glucose 10 Tabs/Tube) 4 - 8 tabs PO UD PRN; Protocol PRN Reason: Hypoglycemia Protocol Stop: 10/14/21 19:42 Glucose (Glucose 40% Gel 15 Gm Tube) 15 - 30 gm PO UD PRN; Protocol PRN Reason: Hypoglycemia Protocol Stop: 10/14/21 19:42 Insulin Aspart (Insulin Aspart Per Unit) 0 units SC ACHS [facility] Stop: 10/14/21 20:59 Last Admin: 09/15/21 12:31 Dose: 7 units Documented by: Metoprolol Tartrate (Metoprolol Tartrate 25 Mg Tab) 25 mg PO BID [facility] Stop: 10/14/21 20:59 Last Admin: 09/15/21 08:44 Dose: 25 mg Documented by: Miscellaneous (Carbohydrates For Hypoglycemia ) 15 - 30 gm PO UD PRN PRN Reason: Hypoglycemia Protocol Stop: 10/14/21 19:42 Multivitamins (Multivitamin Tab) 1 tab PO DAILY ELISA Stop: 10/15/21 08:59 Last Admin: 09/15/21 08:43 Dose: 1 tab Documented by: Ondansetron HCl (Ondansetron Inj 2 Mg/Ml 2 Ml Vial) 4 mg IV Q6H PRN PRN Reason: Nausea Stop: 10/14/21 19:42 Polyethylene Glycol (Polyethylene (Miralax) 17 Gm Pack) 17 gm PO DAILY PRN PRN Reason: Constipation Stop: 10/14/21 19:42 (1) Carotid artery disease Carotid artery disease type: unspecified Laterality: right Qualified Code(s): I77.9 - Disorder of arteries and arterioles, unspecified
[2021-09-15] MEDS: ATORVASTATIN 40 MG TAB PO SCH (21:38)
[2021-09-16 05:30] LABS: Base Excess ABG 0.2 mEq/L (-9-1.8); HCO3 ABG 25 mmol/L (19-24); Oxygen Saturation ABG 89.6 % (90-95); PCO2 ABG 40 mmHg (35-46); PO2 ABG 57 mmHg (80-95); pH ABG 7.41 (7.35-7.45)
[2021-09-16 05:41] LABS: Allen Test Pos (Pos)
[2021-09-16 05:43] LABS: Hematocrit (blood only) 39.9 % (37-47); Hemoglobin 13.2 g/dL (12.0-16.0); Mean Corpuscular Hemoglobin 30.1 pg (25-34); Mean Corpuscular Hgb Conc 33.1 g/dL (32-36); Mean Corpuscular Volume 91.1 fL (80-100); Mean Platelet Volume 10.9 fL (7.4-10.4); Platelet Count 256 K/uL (130-400); RDW Coefficient of Variation 13.1 % (11.5-14.5); RDW Standard Deviation 43.6 fL (36.4-46.3); Red Blood Count 4.38 M/uL (4.2-5.4); White Blood Count 8.07 K/uL (4.8-10.8)
[2021-09-16 05:56] LABS: BUN Creatinine Ratio 22.1 (10-20); Calcium 9.1 mg/dl (8.5-10.1); Creatinine Clr Calc Pharmacy 43.1 ml/min; Est GFR (Non-African American) 49.2 ml/min; Potassium 4.3 mmol/L (3.5-5.1)
[2021-09-16 06:01] LABS: Partial Thromboplastin Ratio 0.7
[2021-09-16 06:03] LABS: Partial Thromboplastin Time < 20.0 Seconds (21.0-31.0)
[2021-09-16 07:40] LABS: Estimated Average Glucose 189 mg/dl; Hemoglobin A1C 8.2 % (4.5-5.6)
--- NOTE | 2021-09-16 08:09 | XRay Report ---
XR chest 1V portable CLINICAL HISTORY: low o2 COMPARISON STUDY: Chest radiograph September 14, 2021. FINDINGS: Lung volumes are normal. Minimal left basilar opacity favors atelectasis. There is no pneum othorax or pleural effusion. Cardiac size is normal. Mediastinal contours are normal. There is no rahul dence for pulmonary edema. IMPRESSION: No acute cardiopulmonary findings. Minimal left basilar opacity favors atelectasis. ACT 112: Negative or not required by law. Electronically signed by: Bashir Conklin M.D. 09/16/2021 8:07 AM
[2021-09-16] MEDS: METOPROLOL TARTRATE 25 MG TAB PO SCH ×2 (08:53→19:54)
[2021-09-16] MEDS: MULTIVITAMIN TAB PO SCH (08:53)
[2021-09-16] MEDS: INSULIN ASPART PER UNIT SC SCH ×4 (08:53→22:08)
[2021-09-16] MEDS: ASPIRIN 81 MG ECTAB PO SCH (08:53)
[2021-09-16] MEDS: FENOFIBRATE NANOCRYSTALLIZED 145 MG TABLET PO SCH (08:54)
[2021-09-16] MEDS: CLOPIDOGREL BISULFATE 75 MG TAB PO SCH (08:54)
[2021-09-16] MEDS: lisinopril 5 MG TAB PO SCH (09:00)
--- NOTE | 2021-09-16 09:29 | Consultation ---
Date of Consultation September 16, 2021 Assessment & Plan (1) Carotid artery disease: Pt with acute R hemispheric infarcts on MRI and severe stenosis of R ICA. She is also having intermittent L hand numbness, which is concerning for possible TIAs. Pt also seen by Dr Oakley today. Recommends pt undergo R CEA later this week. Procedure was discussed with pt at length, she is agreeable to proceed. Patient was seen, examined, and chart reviewed. Agree with exam and treatment plan of the Vascular PA. Carotid artery disease type: unspecified Laterality: right Qualified Code(s): I77.9 - Disorder of arteries and arterioles, unspecified History of Present Illness Reason for Consultation: NICOL BRODERICKA Attending Physician: Radha Brice MD History of Present Illness 71 yo f with hx of DMII, HTN, dyslipidemia, admitted with L arm weakness/numbness, seen in consultation today for RICAS over 70%. Pt states she was in her normal state of health 2 days ago when she noted weakness and numbness of L hand, having dropped a container as she attempted to place it in her fridge. Pt states no associated MORALES, dizziness, confusion, amaurosis, other complaints. States she came to [facility] for eval and has noted intermittent numbness of L hand/arm/face since arriving here. Pt denies previous similar sx or CVA. Pt denies fever, recent illness, chest pain, SOB, abd pain, N/V, rest pain, claudication, other complaints. CTA neck demonstrates 90% stenosis of R ICA. MRI brain demonstrates acute R hemispheric CVA. Allergies Allergy/AdvReac Type Severity Reaction Status Date / Time cefazolin Allergy Unknown RASH Unverified 09/14/21 14:27 oxycodone Allergy Unknown RASH Unverified 09/14/21 14:27 Home Medications Medication Instructions Recorded Confirmed Type amlodipine 5 mg tablet 5 mg PO DAILY 10/23/18 09/14/21 History metformin 500 mg tablet 500 mg PO BIDM 10/23/18 09/14/21 History metoprolol tartrate 50 mg tablet 25 mg PO BID 10/23/18 09/14/21 History multivitamin (Multiple Vitamins) 1 tab PO DAILY 10/23/18 09/14/21 History aspirin 81 mg capsule 81 mg PO DAILY 09/14/21 09/14/21 History Patient History Medical History Basal ganglia infarction Diabetes mellitus, type II Hypertension Surgical History History of hysterectomy Hx of appendectomy Hx of cholecystectomy Social History Smoking Status: Never smoker Tobacco Type: Cigarettes Hx Alcohol Use: No Hx Substance Use: No Preferred Language: Kyrgyz Communication Ability: Effective Arbitrator Required: No Beliefs That Will Affect Care: None Current Living Situation: Spouse Feels Safe at Home: Yes Safety Concerns: Feels Safe At This Time Assistive Devices: Glasses Review of Systems Review of Systems: All systems reviewed & are unremarkable except as noted in HPI & below Physical Exam Constitutional: WD/WN, vitals as above cooperative and comfortable; not in distress ENMT: Ears: no hearing impairment Neck: trachea midline Respiratory: normal respiratory effort, lungs clear to auscultation Cardiovascular: Rate/Rhythm: regular rate and regular rhythm Vessels: + carotid bruit, femoral pulses present, posterior tibial pulses present, dorsalis pedis pulses present, brachial pulses present and radial pulses present; + abnormal peripheral pulses Extremities: normal capillary refill; no edema Gastrointestinal (Abdomen): Inspection/Auscultation: abdomen normal to inspection and normal bowel sounds Percussion/Palpation: abdomen soft; abdomen nontender Musculoskeletal: no cyanosis or clubbing, extremities motor strength 5/5 Skin: no rashes, warm and dry Neurologic: moves all extremities and awake; no focal motor deficits and not confused Speech / Cognition: normal speech Psychiatric: A+Ox3, euthymic affect Results & Data ([facility]) Vital Signs (Past 12 Hours) Vital Signs Temp Pulse Pulse Resp BP Pulse Ox 09/16/21 07:01 55 L 09/16/21 07:00 36.4 C L 58 L 20 165/84 H 92 09/16/21 03:27 36.4 C L 57 L 16 127/63 91 09/15/21 23:54 67 09/15/21 22:35 36.7 C 62 20 145/79 H 94 09/15/21 21:36 66 16 156/84 H 96
--- NOTE | 2021-09-16 13:45 | Hospitalist Progress Note ---
Date of Service September 16, 2021 Assessment & Plan (1) Carotid artery disease: (2) Hypertension: Plan: -continue metoprolol, BP above goal. Will start lisinopril 5mg daily (3) Diabetes mellitus, type II: Plan: hold metformin continue corrective scale insulin -HA1c 8.2% (4) Dyslipidemia: Plan: not on medications previously started atorvastatin 40mg QHS and fenofibrate here (5) Acute CVA (cerebrovascular accident): Plan: -noted on MRI brain -continue aspirin, plavix (started here), LDL and TG above goal. Started atorvastatin 40mg daily and fenofibrate -Appreciate Neurology in rust -Vascular surgery consulted and recommend for CEA later this week Plan: DVT ppx -SCDs Admission and Anticipated Discharge Date Admission Date: September 15, 2021 Subjective Patient feels well. No events overnight Physical Exam Physical Exam: Sitting in chair, no acute distress Respiratory: breathing comfortably on room air, no wheezing/rhonchi/rales Cardiovascular: regular rate and rhythm, no murmurs/rubs/gallops Gastrointestinal (Abdomen): soft, non tender, non distended Musculoskeletal: no edema Neurologic: awake, alert, spontaneously moving extremities Results & Data Results & Data ([facility]) Vital Signs (Past 12 Hours) Vital Signs Temp Pulse Pulse Resp BP Pulse Ox 09/16/21 11:00 36.3 C L 54 L 18 148/64 H 95 09/16/21 07:01 55 L 09/16/21 07:00 36.4 C L 58 L 20 165/84 H 92 09/16/21 03:27 36.4 C L 57 L 16 127/63 91 Laboratory Results Short CBC 09/16/21 Range/Units 05:04 WBC 8.07 (4.8-10.8) K/uL Hgb 13.2 (12.0-16.0) g/dL Hct 39.9 (37-47) % Plt Count 256 (130-400) K/uL BMP 09/16/21 05:04 Sodium 139 Potassium 4.3 Chloride 108 H Carbon Dioxide 21 BUN 25 H Creatinine 1.13 Glucose 155 H Calcium 9.1 Medications Administered Current Inpatient Medications Acetaminophen (Acetaminophen 325 Mg Tab) 650 mg PO Q4H PRN PRN Reason: Pain or Fever Stop: 10/14/21 19:42 Al Hydrox/Mg Hydrox/Simethicone (Aluminum/Magnesium Susp 30 Ml Udc) 15 ml PO Q4H PRN PRN Reason: Dyspepsia Stop: 10/14/21 19:42 Aspirin (Aspirin 81 Mg Ectab) 81 mg PO DAILY ELISA Stop: 10/15/21 08:59 Last Admin: 09/16/21 08:53 Dose: 81 mg Documented by: Atorvastatin Calcium (Atorvastatin 40 Mg Tab) 40 mg PO QPM [facility] Stop: 10/14/21 20:59 Last Admin: 09/15/21 21:38 Dose: 40 mg Documented by: Clopidogrel Bisulfate (Clopidogrel Bisulfate 75 Mg Tab) 75 mg PO QAM [facility] Stop: 10/15/21 08:59 Last Admin: 09/16/21 08:54 Dose: 75 mg Documented by: Dextrose (Dextrose 50% 50 Ml Syringe) 25 - 50 ml IV UD PRN; Protocol PRN Reason: Hypoglycemia Protocol Stop: 10/14/21 19:42 Fenofibrate (Fenofibrate Nanocrystallized 145 Mg Tablet) 145 mg PO QAM [facility] Stop: 10/15/21 08:59 Last Admin: 09/16/21 08:54 Dose: 145 mg Documented by: Glucagon (Glucagon For Inj 1 Mg Vial) 1 mg SQ UD PRN; Protocol PRN Reason: Hypoglycemia Protocol Stop: 10/14/21 19:42 Glucose (Glucose 10 Tabs/Tube) 4 - 8 tabs PO UD PRN; Protocol PRN Reason: Hypoglycemia Protocol Stop: 10/14/21 19:42 Glucose (Glucose 40% Gel 15 Gm Tube) 15 - 30 gm PO UD PRN; Protocol PRN Reason: Hypoglycemia Protocol Stop: 10/14/21 19:42 Insulin Aspart (Insulin Aspart Per Unit) 0 units SC ACHS [facility] Stop: 10/14/21 20:59 Last Admin: 09/16/21 12:30 Dose: 6 units Documented by: Lisinopril (Lisinopril 5 Mg Tab) 5 mg PO QAM [facility] Stop: 10/16/21 08:59 Last Admin: 09/16/21 09:00 Dose: 5 mg Documented by: Metoprolol Tartrate (Metoprolol Tartrate 25 Mg Tab) 25 mg PO BID [facility] Stop: 10/14/21 20:59 Last Admin: 09/16/21 08:53 Dose: 25 mg Documented by: Miscellaneous (Carbohydrates For Hypoglycemia ) 15 - 30 gm PO UD PRN PRN Reason: Hypoglycemia Protocol Stop: 10/14/21 19:42 Multivitamins (Multivitamin Tab) 1 tab PO DAILY ELISA Stop: 10/15/21 08:59 Last Admin: 09/16/21 08:53 Dose: 1 tab Documented by: Ondansetron HCl (Ondansetron Inj 2 Mg/Ml 2 Ml Vial) 4 mg IV Q6H PRN PRN Reason: Nausea Stop: 10/14/21 19:42 Polyethylene Glycol (Polyethylene (Miralax) 17 Gm Pack) 17 gm PO DAILY PRN PRN Reason: Constipation Stop: 10/14/21 19:42 (1) Carotid artery disease Carotid artery disease type: unspecified Laterality: right Qualified Code(s): I77.9 - Disorder of arteries and arterioles, unspecified
[2021-09-16] MEDS: ATORVASTATIN 40 MG TAB PO SCH (19:54)
[2021-09-17 07:59] LABS: BUN Creatinine Ratio 21.5 (10-20); Creatinine Clr Calc Pharmacy 32.9 ml/min; Est GFR (Non-African American) 39.7 ml/min; Potassium 4.3 mmol/L (3.5-5.1)
[2021-09-17] MEDS: ASPIRIN 81 MG ECTAB PO SCH (08:33)
[2021-09-17] MEDS: MULTIVITAMIN TAB PO SCH (08:33)
[2021-09-17] MEDS: INSULIN ASPART PER UNIT SC SCH ×4 (08:33→19:59)
[2021-09-17] MEDS: FENOFIBRATE NANOCRYSTALLIZED 145 MG TABLET PO SCH (08:33)
[2021-09-17] MEDS: CLOPIDOGREL BISULFATE 75 MG TAB PO SCH (08:34)
[2021-09-17] MEDS: lisinopril 5 MG TAB PO SCH (08:34)
[2021-09-17] MEDS: METOPROLOL TARTRATE 25 MG TAB PO SCH ×2 (08:34→20:01)
--- NOTE | 2021-09-17 12:06 | Hospitalist Progress Note ---
Date of Service September 17, 2021 Assessment & Plan (1) Carotid artery disease: (2) Hypertension: Plan: -continue metoprolol and lisinopril 5mg daily -amlodipine discontinued (3) Diabetes mellitus, type II: Plan: hold metformin continue corrective scale insulin -HA1c 8.2% (4) Dyslipidemia: Plan: not on medications previously started atorvastatin 40mg QHS and fenofibrate here (5) Acute CVA (cerebrovascular accident): Plan: -noted on MRI brain -continue aspirin, plavix (started here), LDL and TG above goal. Started atorvastatin 40mg daily and fenofibrate -[facility] -Vascular surgery consulted and recommend for CEA later this week. Plan: DVT ppx -SCDs Admission and Anticipated Discharge Date Admission Date: September 15, 2021 Subjective Patient feels well No events overnight Physical Exam 2 Physical Exam: Pleasant and comfortable, no acute distress Respiratory: breathing comfortably on room air, no wheezing/rhonchi/rales Cardiovascular: regular rate and rhythm, no murmurs/rubs/gallops Gastrointestinal (Abdomen): soft, non tender Musculoskeletal: no edema Neurologic: awake, alert, spontaneously moving extremities Results & Data Results & Data ([facility]) Vital Signs (Past 12 Hours) Vital Signs Temp Pulse Pulse Resp BP Pulse Ox 09/17/21 11:14 36.8 C 55 L 14 117/70 94 09/17/21 07:31 58 L 09/17/21 06:47 36.4 C L 60 18 139/66 93 09/17/21 04:08 36.5 C 72 18 113/53 L 93 Laboratory Results [facility] 09/17/21 07:03 Sodium 139 Potassium 4.3 Chloride 108 H Carbon Dioxide 23 BUN 29 H Creatinine 1.35 H Glucose 192 H Calcium 9.0 Medications Administered Current Inpatient Medications Acetaminophen (Acetaminophen 325 Mg Tab) 650 mg PO Q4H PRN PRN Reason: Pain or Fever Stop: 10/14/21 19:42 Al Hydrox/Mg Hydrox/Simethicone (Aluminum/Magnesium Susp 30 Ml Udc) 15 ml PO Q4H PRN PRN Reason: Dyspepsia Stop: 10/14/21 19:42 Aspirin (Aspirin 81 Mg Ectab) 81 mg PO DAILY ELISA Stop: 10/15/21 08:59 Last Admin: 09/17/21 08:33 Dose: 81 mg Documented by: Atorvastatin Calcium (Atorvastatin 40 Mg Tab) 40 mg PO QPM [facility] Stop: 10/14/21 20:59 Last Admin: 09/16/21 19:54 Dose: 40 mg Documented by: Clopidogrel Bisulfate (Clopidogrel Bisulfate 75 Mg Tab) 75 mg PO QAM [facility] Stop: 10/15/21 08:59 Last Admin: 09/17/21 08:34 Dose: 75 mg Documented by: Dextrose (Dextrose 50% 50 Ml Syringe) 25 - 50 ml IV UD PRN; Protocol PRN Reason: Hypoglycemia Protocol Stop: 10/14/21 19:42 Fenofibrate (Fenofibrate Nanocrystallized 145 Mg Tablet) [facility] [place]: 10/15/21 08:59 Last Admin: 09/17/21 08:33 Dose: 145 mg Documented by: Glucagon (Glucagon For Inj 1 Mg Vial) 1 mg SQ UD PRN; Protocol PRN Reason: Hypoglycemia Protocol Stop: 10/14/21 19:42 Glucose (Glucose 10 Tabs/Tube) 4 - 8 tabs PO UD PRN; Protocol PRN Reason: Hypoglycemia Protocol Stop: 10/14/21 19:42 Glucose (Glucose 40% Gel 15 Gm Tube) 15 - 30 gm PO UD PRN; Protocol PRN Reason: Hypoglycemia Protocol Stop: 10/14/21 19:42 Clindamycin Phosphate (Cleocin) 600 mg in 54 mls @ 100 mls/hr IV PREOP [facility] Stop: 09/19/21 05:59 Insulin Aspart (Insulin Aspart Per Unit) 0 units SC ACHS ELISA Stop: 10/14/21 20:59 Last Admin: 09/17/21 08:33 Dose: 7 units Documented by: Lisinopril (Lisinopril 5 Mg Tab) 5 mg PO QAM ELISA Stop: 10/16/21 08:59 Last Admin: 09/17/21 08:34 Dose: 5 mg Documented by: Metoprolol Tartrate (Metoprolol Tartrate 25 Mg Tab) 25 mg PO BID [facility] Stop: 10/14/21 20:59 Last Admin: 09/17/21 08:34 Dose: 25 mg Documented by: Miscellaneous (Carbohydrates For Hypoglycemia ) 15 - 30 gm PO UD PRN PRN Reason: Hypoglycemia Protocol Stop: 10/14/21 19:42 Multivitamins (Multivitamin Tab) 1 tab PO DAILY ELISA Stop: 10/15/21 08:59 Last Admin: 09/17/21 08:33 Dose: 1 tab Documented by: Ondansetron HCl (Ondansetron Inj 2 Mg/Ml 2 Ml Vial) 4 mg IV Q6H PRN PRN Reason: Nausea Stop: 10/14/21 19:42 Polyethylene Glycol (Polyethylene (Miralax) 17 Gm Pack) 17 gm PO DAILY PRN PRN Reason: Constipation Stop: 10/14/21 19:42 (1) Carotid artery disease Carotid artery disease type: unspecified Laterality: right Qualified Code(s): I77.9 - Disorder of arteries and arterioles, unspecified
--- NOTE | 2021-09-17 13:35 | Anesthesiology Consultation ---
Date of Service September 17, 2021 Assessment & Plan (1) Encounter for pre-operative examination: Chart Review Chart Review: entry level receptionist initiated History Surgery Operation Date: 09/18/21 07:30 Proposed Procedures p Right Carotid Endarterectomy - Chaz Oakley MD Height/Weight Height: 5 ft 1 in Weight: 62.8 kg Allergies Allergy/AdvReac Type Severity Reaction Status Date / Time cefazolin Allergy Unknown RASH Unverified 09/14/21 14:27 oxycodone Allergy Unknown RASH Unverified 09/14/21 14:27 Medications Home Medications Medication Instructions Recorded Confirmed Last Taken amlodipine 5 mg tablet 5 mg PO DAILY 10/23/18 09/14/21 09/14/21 metformin 500 mg tablet 500 mg PO BIDM 10/23/18 09/14/21 09/14/21 metoprolol tartrate 50 mg tablet 25 mg PO BID 10/23/18 09/14/21 09/14/21 multivitamin (Multiple Vitamins) 1 tab PO DAILY 10/23/18 09/14/21 09/14/21 aspirin 81 mg capsule 81 mg PO DAILY 09/14/21 09/14/21 09/14/21 Active Medications Generic Name Dose Route Start Last Admin Trade Name Freq PRN Reason Stop Dose Admin Aspirin 81 mg 09/15/21 09:00 09/17/21 08:33 Aspirin 81 Mg Ectab PO 10/15/21 08:59 81 mg DAILY ELISA Administration Atorvastatin Calcium 40 mg 09/14/21 21:00 09/16/21 19:54 Atorvastatin 40 Mg Tab PO 10/14/21 20:59 40 mg QPM ELISA Administration Clopidogrel Bisulfate 75 mg 09/15/21 09:00 09/17/21 08:34 Clopidogrel Bisulfate 75 Mg Tab PO 10/15/21 08:59 75 mg QAM ELISA Administration Fenofibrate 145 mg 09/15/21 09:00 09/17/21 08:33 Fenofibrate Nanocrystallized 145 Mg Tablet PO 10/15/21 08:59 145 mg QAM ELISA Administration Insulin Aspart 0 units 09/14/21 21:00 09/17/21 12:36 Insulin Aspart Per Unit SC 10/14/21 20:59 5 units ACHS ELISA Administration Lisinopril 5 mg 09/16/21 09:00 09/17/21 08:34 Lisinopril 5 Mg Tab PO 10/16/21 08:59 5 mg QAM ELISA Administration Metoprolol Tartrate 25 mg 09/14/21 21:00 09/17/21 08:34 Metoprolol Tartrate 25 Mg Tab PO 10/14/21 20:59 25 mg BID ELISA Administration Multivitamins 1 tab 09/15/21 09:00 09/17/21 08:33 Multivitamin Tab PO 10/15/21 08:59 1 tab DAILY ELISA Administration Past Medical History Medical History Basal ganglia infarction Diabetes mellitus, type II Hypertension Past Surgical History Surgical History History of hysterectomy Hx of appendectomy Hx of cholecystectomy Social History Smoking Status: Never smoker Hx Alcohol Use: No Hx Substance Use: No Physical Exam Vital Signs Last Vital Signs Temp 98.2 F 09/17/21 11:14 Pulse 55 L 09/17/21 11:14 Resp 14 09/17/21 11:14 BP 117/70 09/17/21 11:14 Pulse Ox 94 09/17/21 11:14 Testing Laboratory Results 09/16/21 05:04 09/17/21 07:03 PT 10.2 Seconds (9.0-12.0) 09/14/21 13:10 INR 1.0 (0.9-1.1) 09/14/21 13:10 APTT < 20.0 Seconds (21.0-31.0) L 09/16/21 05:04 Hemoglobin A1c 8.2 % (4.5-5.6) H 09/15/21 05:42 Urine Color Yellow 09/14/21 14:55 Urine Appearance Clear (Clear) 09/14/21 14:55 Urine pH 5.0 (4.5-7.5) 09/14/21 14:55 Ur Specific [place] 1.014 (1.000-1.030) 09/14/21 14:55 Urine Protein Negative (Negative) 09/14/21 14:55 Urine Glucose (UA) Negative (Negative) 09/14/21 14:55 Urine Ketones Negative (Negative) 09/14/21 14:55 Urine Nitrite Negative (Negative) 09/14/21 14:55 Ur Leukocyte Esterase Trace (Negative) H 09/14/21 14:55 Urine WBC (Auto) 1-5 /hpf (0-5) 09/14/21 14:55 Urine RBC (Auto) 0-4 /hpf (0-4) 09/14/21 14:55 U Hyaline Cast (Auto) 1-5 /lpf (0-5) 09/14/21 14:55 U Epithel Cells (Auto) 20-30 /lpf (0-5) H 09/14/21 14:55 Urine Bacteria (Auto) Negative (Negative) 09/14/21 14:55 09/17/21 09/17/21 11:29 07:27 POC Glucose 133 H 184 H Laboratory Tests 09/14/21 17:25 SARS-CoV-2, RNA, NAAT NEGATIVE Electrocardiogram Date: 09/14/21 Sinus bradycardia, rate 54 bpm Otherwise normal ECG When compared with ECG of 21-DEC-2014 00:33, No significant change was found Confirmed by Avni Bliss ([id number]) on 09/15/2021 11:40:35 AM Chest X-Ray Date: 09/16/21 IMPRESSION: No acute cardiopulmonary findings. Minimal left basilar opacity favors atelectasis. Echocardiogram Date: 09/15/21 There is normal LV wall thickness LV wall motion is normal LV systolic function is normal LV EF = 55-60% Mild TR Mild pulmonary HTN PASP is estimated to be 39 mm Hg There is no evidence of atrial septal defect, but resolution does not allow assessment for a PFO
--- NOTE | 2021-09-17 16:57 | Communication Note ---
Date of Service: September 17, 2021 Patient preferred to be transferred to [facility]. Discussed with Dr. Hickman. He accepted patient in transfer.
--- NOTE | 2021-09-17 17:08 | Discharge Summary ---
Date of Service September 17, 2021 Admission HPI Per Admitting Provider Ms Joann Cerna is a 71 year old female with history of hypertension, type 2 non insulin dependent diabetes and hyperlipidemia not on medications presents to the ER with intermittent left hand weakness and dropping things. Her symptoms started yesterday and have since resolved. Patient reports history of 2 prior strokes the last one was about 6 years ago but with no residual deficits. She has otherwise been well. No recent illness. No fever/chills/nausea/vomiting or other complaints Principal Diagnosis Acute embolic CVA Severe right ICA stenosis Mixed hyperlipidemia Discharge Exam Patient is well. No gross neurologic deficit. Breathing comfortably on room air. Regular rate and rhythm. No leg swelling Discharge Data Allergies Allergy/AdvReac Type Severity Reaction Status Date / Time cefazolin Allergy Unknown RASH Unverified 09/14/21 14:27 oxycodone Allergy Unknown RASH Unverified 09/14/21 14:27 Consultations 09/14/21 17:10 ED Decision to Admit Stat 09/14/21 19:43 Consult Neurology Routine 09/15/21 14:07 Consult Vascular Surgery Routine Procedures Performed Operation Date: 09/18/21 07:30 <No data on this case meets the specified criteria> Ordered Studies 09/14/21 13:43 CT angio head w con Stat CT angio neck with con Stat CT head/brain wo con Stat 09/15/21 09:15 MR brain wo con Routine Hospital Course (1) Carotid artery disease: (2) Hypertension: (3) Diabetes mellitus, type II: (4) Dyslipidemia: (5) Acute CVA (cerebrovascular accident): Mrs Joann Cerna is a 71 year old female with history of prior TIA on aspirin only, hypertension, non insulin dependent diabetes, hyperlipidemia not on medications presented to the ER on 09/14 with left hand weakness and dropping things which began the day before. Here, MRI brain confirmed two acute punctate infarcts within right frontal lobe (MRI report below). Her CTA head and neck showed high grade stenosis of right internal carotid artery. She was seen by neurology and recommended addition of plavix to her regimen and vascular surgery consult for her symptomatic carotid stenosis. She was seen by vascular surgery here and a CEA was recommended. 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 However, patient requesting to be transferred to [facility] instead. Dr Oakley discussed with Dr Hickman at [facility] and she was accepted for transfer. MRI brain IMPRESSION: 1. There are 2 punctate acute infarcts seen within the right frontal lobe as described above. 2. Old left basal ganglia/thalamic infarcts are again noted. 3. Acute sphenoid sinusitis. CTA head/neck IMPRESSION: 1. No significant stenosis, occlusion, or aneurysm within the [place]. 2. A focal area of high-grade stenosis at the takeoff of the right internal carotid artery due to the atherosclerotic plaque. This demonstrates approximately 70% stenosis. 3. In addition, there is a small focal linear filling defect within the proximal right internal carotid artery as described above which favors a small amount of atherosclerotic plaque/thrombus. A focal intimal flap/dissection is considered less likely but not entirely excluded. Remaining right internal carotid artery is widely patent. 4. Multinodular thyroid gland. Dominant nodule on the left measures 1.9 cm. 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 Mixed hyperlipidemia Condition on Discharge: Fair Activity: Resume your previous activity Non-emergency contact: Primary Care Provider and Surgeon Call non-emergency contact if: you have any medication questions Follow-up/Referrals: Jeramy Reyes MD [Primary Care Provider] - Diet: Heart Healthy Addtl Attending Provider Instructions: You will be transferred to [facility] under the care of Dr Hickman Pending Studies at Discharge: No Stand-Alone Forms: [facility] Patient informed of condition?: Yes DNR: No Discharge Level of Care: Other Communicable Disease: No Discharge Prognosis: Stable Lines: Peripheral IV Urinary Catheter: No Medications and DC Order Prescriptions: New atorvastatin 40 mg Tablet 40 mg PO QPM 30 Days Qty: 30 RF: 0 clopidogrel 75 mg Tablet 75 mg PO QAM 30 Days Qty: 30 RF: 0 lisinopril [Zestril] 5 mg Tablet 5 mg PO QAM 30 Days Qty: 30 RF: 0 fenofibrate nanocrystallized 145 mg Tablet 145 mg PO QAM 30 Days Qty: 30 RF: 0 Continued metoprolol tartrate 50 mg tablet 25 mg PO BID RF: 0 multivitamin [Multiple Vitamins] Tablet 1 tab PO DAILY RF: 0 aspirin 81 mg Capsule 81 mg PO DAILY RF: 0 Discontinued metformin 500 mg tablet 500 mg PO BIDM RF: 0 amlodipine 5 mg tablet 5 mg PO DAILY RF: 0 Discharge Orders: Discharge Order (Routine); Ordered 09/17/21 Ordered By: Radha Sanches/Other Patient Handouts: High Blood Sugar (Hyperglycemia), Hypoglycemia (Low Blood Sugar), Managing Type 2 Diabetes, Diabetes: Meal Planning, Diabetes- Measuring Glucose at Home Admission Data Admit Date/Time: 09/15/21 14:08 Attending Provider: Radha Brice Admit Provider: Radha Brice Primary Care Provider: Jeramy Reyes Other Providers: Radha Brice ; Tito Stephen ; Chaz Oakley
[2021-09-17] MEDS: ATORVASTATIN 40 MG TAB PO SCH (20:01)
[2021-09-18] MEDS ORDERED: CLINDAMYCIN 600 MG/54 ML BAG IV SCH (06:00)
[2021-09-18 06:45] LABS: BUN Creatinine Ratio 23.9 (10-20); Est GFR (African American) 54.7 ml/min; Est GFR (Non-African American) 47.2 ml/min; Potassium 4.6 mmol/L (3.5-5.1)
[2021-09-18] MEDS: lisinopril 5 MG TAB PO SCH (08:38)
[2021-09-18] MEDS: MULTIVITAMIN TAB PO SCH (08:38)
[2021-09-18] MEDS: ASPIRIN 81 MG ECTAB PO SCH (08:38)
[2021-09-18] MEDS: FENOFIBRATE NANOCRYSTALLIZED 145 MG TABLET PO SCH (08:38)
[2021-09-18] MEDS: METOPROLOL TARTRATE 25 MG TAB PO SCH ×2 (08:38→21:19)
[2021-09-18] MEDS: CLOPIDOGREL BISULFATE 75 MG TAB PO SCH (08:38)
[2021-09-18] MEDS: INSULIN ASPART PER UNIT SC SCH ×4 (08:39→20:51)
--- NOTE | 2021-09-18 13:07 | Hospitalist Progress Note ---
Date of Service September 18, 2021 Assessment & Plan (1) Carotid artery disease: (2) Hypertension: (3) Diabetes mellitus, type II: (4) Dyslipidemia: (5) Acute CVA (cerebrovascular accident): Plan: Plan: Mrs Joann Cerna is a 71 year old female with history of prior TIA on aspirin only, hypertension, non insulin dependent diabetes, hyperlipidemia not on medications presented to the ER on 09/14 with left hand weakness and dropping things which began the day before. Here, MRI brain confirmed two acute punctate infarcts within right frontal lobe (MRI report below). Her CTA head and neck showed high grade stenosis of right internal carotid artery. She was seen by neurology and recommended addition of plavix to her regimen and vascular surgery consult for her symptomatic carotid stenosis. She was seen by vascular surgery here and a CEA was recommended. 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 However, patient requesting to be transferred to [facility] instead. Dr Oakley discussed with Dr Hickman at [facility] and she was accepted for transfer, however patient is still here due to bed unavailability. Acute ischemic stroke with carotid artery disease- continue aspirin, plavix, statin. Awaiting transfer to [facility] for CEA. Echo done and reviewed. MRI brain 1. There are 2 punctate acute infarcts seen within the right frontal lobe as described above. 2. Old left basal ganglia/thalamic infarcts are again noted. 3. Acute sphenoid sinusitis. CTA head/neck 1. No significant stenosis, occlusion, or aneurysm within the [place]. 2. A focal area of high-grade stenosis at the takeoff of the right internal carotid artery due to the atherosclerotic plaque. This demonstrates approximately 70% stenosis. 3. In addition, there is a small focal linear filling defect within the proximal right internal carotid artery as described above which favors a small amount of atherosclerotic plaque/thrombus. A focal intimal flap/dissection is considered less likely but not entirely excluded. Remaining right internal carotid artery is widely patent. 4. Multinodular thyroid gland. Dominant nodule on the left measures 1.9 cm. HTN- on lisinopril, lopressor. Amlodipine discontinued Dyslipidemia- on statin and fibrate DM-2- A1c 8.2%. Metfromin on hold. On SSI- adjust as indicated Dispo- Stable for transfer to [facility], pending bed availability Admission and Anticipated Discharge Date Admission Date: September 15, 2021 Subjective Seen and examined at bedside. Discharge order cancelled as there is no bed available yet at [facility]. Patient understands but she would like further ca re down there rather here. She states all her neurological symptoms have resolved and there are no new symptoms. Ambulating independently. Physical Exam Physical Exam: General: Sitting comfortably in chair, not in distress, on room air HEENT: EOMI, YAHIR, MMM Chest: Clear breath sounds bilaterally, no wheezes or crackles CVS: Regular rate and rhythm, normal heart sounds, no murmur Abdomen: Soft, non tender, not distended, normal bowel sounds Neuro: Awake, alert, oriented, conversing well, non focal Extremities: No cyanosis, clubbing or edema Results & Data Results & Data ([facility]) Vital Signs (Past 12 Hours) Vital Signs Temp Pulse Resp BP Pulse Ox 09/18/21 11:46 36.3 C L 59 L 18 126/62 96 09/18/21 06:34 36.4 C L 60 18 151/80 H 93 09/18/21 02:35 36.7 C 67 18 131/76 92 Laboratory Results [facility] 09/18/21 05:51 Sodium 139 Potassium 4.6 Chloride 109 H Carbon Dioxide 24 BUN 28 H Creatinine 1.17 Glucose 165 H Calcium 9.0 Medications Administered Current Inpatient Medications Acetaminophen (Acetaminophen 325 Mg Tab) 650 mg PO Q4H PRN PRN Reason: Pain or Fever Stop: 10/14/21 19:42 Al Hydrox/Mg Hydrox/Simethicone (Aluminum/Magnesium Susp 30 Ml Udc) 15 ml PO Q4H PRN PRN Reason: Dyspepsia Stop: 10/14/21 19:42 Aspirin (Aspirin 81 Mg Ectab) 81 mg PO DAILY ELISA Stop: 10/15/21 08:59 Last Admin: 09/18/21 08:38 Dose: 81 mg Documented by: Atorvastatin Calcium (Atorvastatin 40 Mg Tab) 40 mg PO QPM ELISA Stop: 10/14/21 20:59 Last Admin: 09/17/21 20:01 Dose: 40 mg Documented by: Clopidogrel Bisulfate (Clopidogrel Bisulfate 75 Mg Tab) 75 mg PO QAM ELISA Stop: 10/15/21 08:59 Last Admin: 09/18/21 08:38 Dose: 75 mg Documented by: Dextrose (Dextrose 50% 50 Ml Syringe) 25 - 50 ml IV UD PRN; Protocol PRN Reason: Hypoglycemia Protocol Stop: 10/14/21 19:42 Fenofibrate (Fenofibrate Nanocrystallized 145 Mg Tablet) 145 mg PO QAM ELISA Stop: 10/15/21 08:59 Last Admin: 09/18/21 08:38 Dose: 145 mg Documented by: Glucagon (Glucagon For Inj 1 Mg Vial) 1 mg SQ UD PRN; Protocol PRN Reason: Hypoglycemia Protocol Stop: 10/14/21 19:42 Glucose (Glucose 10 Tabs/Tube) 4 - 8 tabs PO UD PRN; Protocol PRN Reason: Hypoglycemia Protocol Stop: 10/14/21 19:42 Glucose (Glucose 40% Gel 15 Gm Tube) 15 - 30 gm PO UD PRN; Protocol PRN Reason: Hypoglycemia Protocol Stop: 10/14/21 19:42 Clindamycin Phosphate (Cleocin) 600 mg in 54 mls @ 100 mls/hr IV PREOP ELISA Stop: 09/19/21 05:59 Last Admin: 09/18/21 05:38 Dose: Not Given Documented by: Insulin Aspart (Insulin Aspart Per Unit) 0 units SC ACHS ELISA Stop: 10/14/21 20:59 Last Admin: 09/18/21 08:39 Dose: 7 units Documented by: Lisinopril (Lisinopril 5 Mg Tab) 5 mg PO QAM [facility] Stop: 10/16/21 08:59 Last Admin: 09/18/21 08:38 Dose: 5 mg Documented by: Metoprolol Tartrate (Metoprolol Tartrate 25 Mg Tab) 25 mg PO BID ELISA Stop: 10/14/21 20:59 Last Admin: 09/18/21 08:38 Dose: 25 mg Documented by: Miscellaneous (Carbohydrates For Hypoglycemia ) 15 - 30 gm PO UD PRN PRN Reason: Hypoglycemia Protocol Stop: 10/14/21 19:42 Multivitamins (Multivitamin Tab) 1 tab PO DAILY ELISA Stop: 10/15/21 08:59 Last Admin: 09/18/21 08:38 Dose: 1 tab Documented by: Ondansetron HCl (Ondansetron Inj 2 Mg/Ml 2 Ml Vial) 4 mg IV Q6H PRN PRN Reason: Nausea Stop: 10/14/21 19:42 Polyethylene Glycol (Polyethylene (Miralax) 17 Gm Pack) 17 gm PO DAILY PRN PRN Reason: Constipation Stop: 10/14/21 19:42 (1) Carotid artery disease Carotid artery disease type: unspecified Laterality: right Qualified Code(s): I77.9 - Disorder of arteries and arterioles, unspecified
[2021-09-18] MEDS: ATORVASTATIN 40 MG TAB PO SCH (21:19)
[2021-09-19] MEDS: ASPIRIN 81 MG ECTAB PO SCH (08:38)
[2021-09-19] MEDS: CLOPIDOGREL BISULFATE 75 MG TAB PO SCH (08:38)
[2021-09-19] MEDS: MULTIVITAMIN TAB PO SCH (08:38)
[2021-09-19] MEDS: INSULIN ASPART PER UNIT SC SCH ×2 (08:38→12:30)
[2021-09-19] MEDS: FENOFIBRATE NANOCRYSTALLIZED 145 MG TABLET PO SCH (08:38)
[2021-09-19] MEDS: METOPROLOL TARTRATE 25 MG TAB PO SCH (08:39)
[2021-09-19] MEDS ORDERED: lisinopril 10 MG TAB PO SCH (09:00)
--- NOTE | 2021-09-19 12:34 | Discharge Summary ---
Date of Service September 19, 2021 Admission HPI Per Admitting Provider Ms Joann Cerna is a 71 year old female with history of hypertension, type 2 non insulin dependent diabetes and hyperlipidemia not on medications presents to the ER with intermittent left hand weakness and dropping things. Her symptoms started yesterday and have since resolved. Patient reports history of 2 prior strokes the last one was about 6 years ago but with no residual deficits. She has otherwise been well. No recent illness. No fever/chills/nausea/vomiting or other complaints Admission Exam Per Admitting Provider Physical Exam: Appears stated age, no acute distress, pleasant ENMT: EOMI, normocephalic, atraumatic Respiratory: breathing comfortably on room air, no wheezing/rhonchi/rales Cardiovascular: regular rate and rhythm, no murmurs/rubs/gallops Gastrointestinal (Abdomen): soft, non tender, non distended Musculoskeletal: no edema, no cyanosis or clubbing Skin: no rash, no redness, no ulcers noted on exposed skin (sacrum was NOT examined since patient was wearing street clothes) Neurologic: awake, alert, CN grossly intact, 5/5 strength upper and lower extremity with intact gross sensation Psychiatric: normal affect, speech linear, appropriate insight and judgement Principal Diagnosis Acute ischemic stroke Discharge Exam General: Sitting comfortably in chair, not in distress, on room air HEENT: EOMI, YAHIR, MMM Chest: Clear breath sounds bilaterally, no wheezes or crackles CVS: Regular rate and rhythm, normal heart sounds, no murmur Abdomen: Soft, non tender, not distended, normal bowel sounds Neuro: Awake, alert, oriented, conversing well, non focal Extremities: No cyanosis, clubbing or edema Discharge Data Allergies Allergy/AdvReac Type Severity Reaction Status Date / Time cefazolin Allergy Unknown RASH Unverified 09/14/21 14:27 oxycodone Allergy Unknown RASH Unverified 09/14/21 14:27 Consultations 09/14/21 17:10 ED Decision to Admit Stat 09/14/21 19:43 Consult Neurology Routine 09/15/21 14:07 Consult Vascular Surgery Routine 09/18/21 07:02 Burn CD for patient Routine Procedures Performed Operation Date: 09/18/21 07:30 <No data on this case meets the specified criteria> Ordered Studies 09/14/21 13:43 CT angio head w con Stat CT angio neck with con Stat CT head/brain wo con Stat 09/15/21 09:15 MR brain wo con Routine Hospital Course (1) Carotid artery disease: (2) Hypertension: (3) Diabetes mellitus, type II: (4) Dyslipidemia: (5) Acute CVA (cerebrovascular accident): Mrs Joann Cerna is a 71 year old female with history of prior TIA on aspirin only, hypertension, non insulin dependent diabetes, hyperlipidemia not on medications presented to the ER on 09/14 with left hand weakness and dropping things which began the day before. Here, MRI brain confirmed two acute punctate infarcts within right frontal lobe (MRI report below). Her CTA head and neck showed high grade stenosis of right internal carotid artery. She was seen by neurology and recommended addition of plavix to her regimen and vascular surgery consult for her symptomatic carotid stenosis. She was seen by vascular surgery here and a CEA was recommended. It was scheduled for 09/18 shear scrapman. How ever, patient requesting to be transferred to [facility] instead. Dr Oakley discussed with Dr Hcikman at [facility] and she was accepted for transfer, however patient could not be discharged due to bed unavailability. I spoke today with AZIAZ Jha with vascular surgery team at [facility] who recommended discharging her home so they can see her in the office as soon as possible and they will schedule the surgery. I asked Alia to talk to the to close the loop and gave her his number. I spoke to the patient and her about the plan and they are agreeable. Patient is comfortable and stable for discharge. She has no residual symptoms and no new symptoms. She has been ambulating independently around the jacques multiple times. Acute ischemic stroke with carotid artery disease- CT and MRI reviewed. Echo reviewed. Continue aspirin, plavix, statin. Echo done and reviewed. Tele unremarkable. Patient did not want any vascular procedure here and wanted to transfer to [facility] but no bed avaiable yet. Spoke with vascular surgery team at [facility] who recommended discharge home with OP follow up and subsequent surgery and that it would be quicker that way rather than waiting for a bed to open up. and agreeable to the plan. MRI brain 1. There are 2 punctate acute infarcts seen within the right frontal lobe as described above. 2. 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 CTA head/neck 1. No significant stenosis, occlusion, or aneurysm within the [place] of [place]. 2. A focal area of high-grade stenosis at the takeoff of the right internal carotid artery due to the atherosclerotic plaque. This demonstrates approximately 70% stenosis. 3. In addition, there is a small focal linear filling defect within the proximal right internal carotid artery as described above which favors a small amount of atherosclerotic plaque/thrombus. A focal intimal flap/dissection is considered less likely but not entirely excluded. Remaining right internal carotid artery is widely patent. 4. Multinodular thyroid gland. Dominant nodule on the left measures 1.9 cm. HTN- on lisinopril, lopressor. Amlodipine discontinued. F/u with PCP for further management Dyslipidemia- on statin and fibrate DM-2- A1c 8.2%. Continue metformin. F/u with PCP for further management. Total Time Total Time Spent Total Time Spent (In Minutes): 35 Discharge Plan Discharge Items Patient Disposition: Home - Self-Care Reason For Visit: TIA Discharge Diagnosis: Acute embolic CVA Severe right ICA stenosis Mixed hyperlipidemia Condition on Discharge: Good Activity: Resume your previous activity Non-emergency contact: Primary Care Provider and Surgeon Call non-emergency contact if: you have any medication questions and your symptoms worsen Follow-up/Referrals: Jeramy Reyes MD [Primary Care Provider] - Diet: Carb Consistent or DM2 Addtl Attending Provider Instructions: I spoke to the vascular team at [facility] and they recommended discharge home and follow up with them in the office for the surgery rather than waiting for the bed to be available and you agree with the plan. They will call you with appointment. In the meantime, if you have new neurological symptoms please come to the emergency immediately. We have added plavix on top of aspirin as well as lipitor due to your stroke Stop amlodipine. Take lisinopril for your blood pressure. Follow with the family doctor for further adjustment if needed. Continue your metformin. Follow up with your family doctor for better control of your blood sugar. I have sent all the new medications to your pharmacy Follow up with neurology in about 8 weeks Pending Studies at Discharge: No Stand-Alone Forms: My [employer], Smoking Cessation Medications and DC Order Prescriptions: New atorvastatin 40 mg Tablet 40 mg PO QPM 30 Days Qty: 30 RF: 0 clopidogrel 75 mg Tablet 75 mg PO QAM 30 Days Qty: 30 RF: 0 fenofibrate nanocrystallized 145 mg Tablet 145 mg PO QAM 30 Days Qty: 30 RF: 0 lisinopril 20 mg tablet 20 mg PO QAM Qty: 30 RF: 0 metformin 500 mg tablet 500 mg PO BID Qty: 60 RF: 0 Continued metoprolol tartrate 50 mg tablet 25 mg PO BID RF: 0 multivitamin [Multiple Vitamins] Tablet 1 tab PO DAILY RF: 0 aspirin 81 mg Capsule 81 mg PO DAILY RF: 0 Discontinued metformin 500 mg tablet 500 mg PO BIDM RF: 0 amlodipine 5 mg tablet 5 mg PO DAILY RF: 0 Discharge Orders: Discharge Order (Routine); Ordered 09/19/21 Ordered By: James Sanches/Other Patient Handouts: High Blood Sugar (Hyperglycemia), Hypoglycemia (Low Blood Sugar), Managing Type 2 Diabetes, Diabetes: Meal Planning, Diabetes- Measuring Glucose at Home Admission Data Admit Date/Time: 09/15/21 14:08 Attending Provider: James Drake Admit Provider: Radha Brice Primary Care Provider: Jeramy Reyes Other Providers: Radha Brice ; Tito Stephen ; Chaz Oakley Other Interventions: Discharge Summary Assessment (RN) Last Done: 09/17/21 18:04
== END 2021-09-19 14:34 | disposition home or self-care (01) | DRG 66 ==
LOC: ED 12:42 → 2N 12:42 → SUATTDRO 09-15 14:08